=== PATIENT | male | born 1980 | race Hispanic/Latino ===

== ENCOUNTER 2018-06-09 13:11 | Emergency (ER) | payer SELFPAY ==
[2018-06-09] MEDS ORDERED: Adacel (T-DAP) 0.5 ML VIAL ONE (14:49)
[2018-06-09] MEDS ORDERED: Lidocaine 1% w/Epinephrine 1:100K 20 ML VIAL ONE (14:49)
== END 2018-06-09 15:18 | disposition home or self-care (01) ==
LOC: ERS 13:11 → EDBD 13:11 → ERS 15:18
DX: L05.91 Pilonidal cyst without abscess (principal); F17.210 Nicotine dependence, cigarettes, uncomplicated; Z71.6 Tobacco abuse counseling
CPT/HCPCS: 10080; 90471; 90715; 99406; J2001

== ENCOUNTER 2018-06-24 11:15 | Outpatient (CLI) | payer OTHER ==
[2018-06-24 12:24] LABS: #Basophils 0.1 thou/uL (0.0-0.2); #Eosinphils 0.6 thou/uL (0.0-0.7); #Lymphocytes 2.9 thou/uL (1.20-3.40); #Monocytes 0.7 thou/uL (0.11-0.59); #Neutrophils 4.1 thou/uL (1.40-6.50); %Basophils 0.8 % (0.0-1.0); %Eosinophils 7.2 % (0.0-10.0); %Lymphocytes 35.2 % (21.0-51.0); %Neutrophils 48.9 % (42.0-75.0); Hemoglobin 15.2 g/dL (14.0-18.0); Mean Corpuscular HGB CONC 35.7 g/dL (32.0-36.0); Mean Corpuscular Hemoglobin 34.8 pg (27.0-31.0); Mean Corpuscular Volume 97.4 fL (78.0-98.0); Mean Platelet Volume 8.6 fL (7.4-10.4); Platelet Count 160 thou/uL (130-400); RBC Distribution Width 11.2 % (11.5-14.5); Red Blood Cell (RBC) Count 4.38 mill/uL (4.70-6.10); White Blood Cell (WBC) Count 8.3 thou/uL (4.8-10.8)
[2018-06-24 12:43] LABS: Anion Gap 15 mmol/L (10-20); BUN (Urea Nitrogen) 8 mg/dL (8.9-20.6); Calc. Creatinine Clearance 0 mL/min (70-130); Calcium 9.3 mg/dL (7.8-10.44); Carbon Dioxide 23 mmol/L (22-29); Chloride 105 mmol/L (98-107); Estimated GFR-MDRD Greater than 90; Glucose 91 mg/dL (70-105); Sodium 139 mmol/L (136-145)
== END 2018-06-24 11:16 | disposition home or self-care (01) ==
LOC: LABBT 11:15
PROVIDERS: ATTEND Surgery
DX: Z01.812 Encounter for preprocedural laboratory examination (principal); L05.91 Pilonidal cyst without abscess
CPT/HCPCS: 80048; 85025

== ENCOUNTER → 2018-06-26 | Day surgery (SDC) | payer OTHER ==
[2018-06-24 11:22] VITALS: BMI 27.4
[~2018-06-26] MED LIST: Albuterol Sulfate HFA (OR ONLY) ONE; Bacitracin Zinc Ointment 30 gm TUBE ONE; Bupivacaine/Epinephrine 0.25% 30 ML VIAL ONE; CEFAZOLIN/Water 2 GM/20 ML SYRINGE ONE; Dexamethasone 20 MG/5 ML VIAL ONE; Fentanyl 100 MCG/2 ML VIAL ONE; Glycopyrrolate 0.2 MG/ML 5 ML SYRINGE ONE; Ketorolac Tromethamine 30 MG/ML VIAL ONE; Lidocaine 1% PF 5 ML VIAL ONE; PROPOFOL 200 MG/20 ML VIAL ONE
--- NOTE | 2018-07-03 15:23 | PDOC.OP ---
Operative Note - Operative Note Operative Note: PROCEDURE: Excision of pilonidal cyst DATE OF PROCEDURE: 06/26/2018 SURGEON: Juli Phillip M.D. PREOPERATIVE DIAGNOSES: Pilonidal cyst POSTOPERATIVE DIAGNOSIS: Pilonidal cyst HISTORY: Patient with intermittent drainage from the upper gluteal cleft and with chronic sinuses several centimeters inferior to this. He was diagnosed with pilonidal cyst and recommendation was made to proceed with operative excision. PROCEDURE IN DETAIL: After informed consent was obtained and appropriate preoperative antibiotics administered the patient was taken to the operating room. He was placed in the supine position and general endotracheal anesthesia was administered. He was then placed in the prone position with appropriate padding and support of his extremities. He was prepped and draped in a standard sterile fashion and methylene blue infused into the sinuses using an Angiocath. There was blue discoloration of the subcutaneous tissues at the heel drainage site in the upper gluteal cleft, consistent with a chronic pilonidal cyst in that area. An elliptical incision was made extending from the superior gluteal cyst down to the sinuses and the pilonidal cyst excised intact. Flaps were raised laterally over the gluteal muscles to allow the subcutaneous tissues to come together. Local anesthesia was infused circumferentially for postoperative analgesia and the subcutaneous tissues were closed in layers with interrupted [id number] [id number] Monocryl sutures. The wound was copiously irrigated and hemostasis verified. The skin was then closed with interrupted vertical mattress nylon sutures. Antibiotic ointment and gauze and an occlusive dressing were placed over the incision. The patient was placed back in the supine position and extubated. He was taken to recovery in good condition. Estimated blood loss was minimal. There were no complications. Specimen is pilonidal cyst.
== END ==
LOC: SDC 05:42
PROVIDERS: ATTEND Surgery
PROC: 0JB90ZZ Excision of Buttock Subcutaneous Tissue and Fascia, Open Approach (ICD-10-PCS; principal; 2018-06-26)
PROC: 0HX8XZZ Transfer Buttock Skin, External Approach (ICD-10-PCS; principal; 2018-06-26)
DX: L05.91 Pilonidal cyst without abscess (principal); F17.210 Nicotine dependence, cigarettes, uncomplicated
CPT/HCPCS: 88304; J1100; J1885; J2001; J2704; J3010; Q9968